=== PATIENT | female | born 1940 | race Caucasian/White ===

== ENCOUNTER 2025-05-24 17:57 | Emergency (ER) | payer BC, MEDICARE ==
[~2025-05-24] VITALS: Ht 157.5 cm; Wt 63.0 kg
[~2025-05-24 17:57] MED LIST: ATEN25TA PO; ATOR10TA PO; FLONASE; LEVO50TA66 PO; LORA10CA PO; LOSA1TAB15 PO
[2025-05-24] MEDS ORDERED: LEVO50TA8 PO (18:24)
[2025-05-24] MEDS ORDERED: METO-357 PO (18:24)
[2025-05-24] MEDS ORDERED: AMLO-212 PO (18:24)
[2025-05-24 18:31] VITALS: BP 150/84
[2025-05-24] MEDS ORDERED: CLON0.1T PO (18:51)
[2025-05-24 19:13] VITALS: BP 150/84; O2SAT 98
== END 2025-05-24 19:13 | disposition home or self-care (01) ==
LOC: ER 18:00
DX: I11.9 Hypertensive heart disease without heart failure (principal); Z79.890 Hormone replacement therapy; Z79.899 Other long term (current) drug therapy; Z88.7 Allergy status to serum and vaccine; Z91.048 Other nonmedicinal substance allergy status
CPT/HCPCS: 93005; A4606; A4663